=== PATIENT | female | born 1995 | race Caucasian/White ===

== ENCOUNTER 2021-12-19 08:29 | Emergency (ER) | payer OTHER, SELFPAY ==
[2021-12-19] VITALS (7 sets, daily range): BP systolic 106–137; BP diastolic 65–88; PULSE 100–117; RESP 18; TEMP 37; O2SAT 96–100; BMI 41.9
--- NOTE | 2021-12-19 09:09 | W.ED.NAVMDI ---
HPI - Nausea/Vomiting/Diarrhea General: Chief complaint: Nausea/Vomiting/Diarrhea Stated complaint: n/v/d Time Seen by Provider: 12/19/21 09:02 Source: patient Mode of arrival: ambulatory Limitations: no limitations History of Present Illness: 26-year-old female states that since 4 this morning she has been having nausea vomiting along with diarrhea. States she not been able to tolerate any p.o.'s been vomiting everything back up. States she has abdominal cramping denies any pain denies any fever she denies any worsening improving factors. Associated nausea: Yes Associated symtoms: Reports nausea; Denies chest pain, dysuria or headache(s) Review of Systems Const: Denies: fever(s), chills, body aches or change in appetite Eyes: Denies: blurry vision or eye discomfort ENMT: Denies: throat pain or dental pain Card: Denies: chest pain Resp: Denies: dyspnea GI: Reports: nausea, vomiting and diarrhea; Denies: abdominal pain : Denies: dysuria Musc: Denies: neck pain or back pain Skin/Breast: Denies: rash Neuro: Denies: headache(s) Psych: Denies: depression Lenin/Lymph: Denies: easy bruising All/Imm: Denies: urticaria PFSH ED PFSH: Medical History (Updated 12/19/21 @ 10:49 by Wes Burrell MD) No pertinent past medical history Surgical History (Updated 12/19/21 @ 09:10 by Wes Burrell MD) History of cholecystectomy Social History (Updated 12/19/21 @ 09:10 by Wes Burrell MD) Substance/Drug Use: never Physical Exam Const: COMMON NORMALS: no acute distress, patient oriented x3 and healthy appearing HENMT: COMMON NORMALS: normocephalic and atraumatic HEAD & SCALP: normocephalic and atraumatic Eye: COMMON NORMALS: Equal, round and reactive pupils present and EOMs intact bilaterally PUPIL: Yes Equal, round and reactive pupils present Neck/C-Spine: COMMON NORMALS: full ROM and supple Chest: COMMONS NORMALS: normal inspection of the chest and normal palpation of entire chest wall Resp: COMMON NORMALS: normal respiratory effort, No retractions, No use of accessory muscles and clear to auscultation bilaterally AUSCULTATION: clear to auscultation bilaterally Cardio: COMMON NORMALS: regular rate, regular rhythm and No murmurs present (Cardio) RATE: regular rate RHYTHM: regular rhythm GI: COMMON NORMALS: Normal to inspection, nondistended, normoactive bowel sounds present, Soft to palpation, non-tender and no masses PALPATION: Yes Soft to palpation Extremity: COMMON NORMALS: normal to inspection and full ROM Neuro: COMMON NORMALS: patient oriented x3, moves all extremities and no focal motor deficits Psych: COMMON NORMALS: mental status grossly normal, Normal thought process present and cooperative THOUGHT PROCESS: Normal thought process present Skin: COMMON NORMALS: no rashes or lesions noted and no wounds GENERAL SKIN EXAM: no rashes or lesions noted Course Vital Signs: Vital signs: Vital Signs Temperature 98.6 F 12/19/21 08:54 Pulse Rate 117 H 12/19/21 08:54 Respiratory Rate 18 12/19/21 08:54 Blood Pressure 137/88 12/19/21 08:54 Pulse Oximetry 97 12/19/21 08:54 MDM - Nausea/Vomiting/Diarrhea Medical Decision Making Patient presents with vomiting diarrhea that is likely viral in origin or food poisoning. She feels much improved here after IV fluids and Zofran her heart rate is improved she does have a leukocytosis I believe is likely due to vomiting. She has had no abdominal pain no signs of appendicitis her exam at discharge is benign with no abdominal tenderness we will prescribe her Zofran she is to follow-up with PCP and return if worsening she understands agrees to plan. Lab Data : 12/19/21 09:15 12/19/21 09:15 Laboratory Results WBC 16.8 10^3/uL (4.0-10.0) H 12/19/21 09:15 RBC 5.56 10^6/uL (4.1-5.3) H 12/19/21 09:15 Hgb 13.2 g/dL (11.5-15.3) 12/19/21 09:15 Hct 42.9 % (37.0-47.0) 12/19/21 09:15 MCV 77.2 fl (81-99) L 12/19/21 09:15 MCH 23.7 pg (28.0-34.0) L 12/19/21 09:15 MCHC 30.8 g/dL (30.0-36.0) 12/19/21 09:15 RDW 14.0 % (12.1-15.1) 12/19/21 09:15 Plt Count 323 10^3/cmm (130-400) 12/19/21 09:15 MPV 10.2 fL (7.4-10.4) 12/19/21 09:15 Neut % (Auto) 93.9 % 12/19/21 09:15 Lymph % (Auto) 2.2 % 12/19/21 09:15 Dougherty % (Auto) 2.9 % 12/19/21 09:15 Eos % (Auto) 0.4 % 12/19/21 09:15 Baso % (Auto) 0.2 % 12/19/21 09:15 Neut # (Auto) 15.77 10^3/uL (1.8-7.7) H 12/19/21 09:15 Lymph # (Auto) 0.4 10^3/uL (0.8-4.8) L 12/19/21 09:15 Dougherty # (Auto) 0.5 10^3/uL (0.2-0.9) 12/19/21 09:15 Eos # (Auto) 0.1 10^3/uL (0.0-0.8) 12/19/21 09:15 Baso # (Auto) 0.0 10^3/uL (0.0-0.1) 12/19/21 09:15 Nucleated RBC % (auto) 0 % 12/19/21 09:15 Nucleated RBCs # 0.0 /100WBC 12/19/21 09:15 Sodium 138 mmol/L (136-145) 12/19/21 09:15 Potassium 4.4 mmol/L (3.5-5.1) 12/19/21 09:15 Chloride 103 mmol/L (98-107) 12/19/21 09:15 Carbon Dioxide 22 mmol/L (22-29) 12/19/21 09:15 Anion Gap 17.4 (5-19) 12/19/21 09:15 BUN 17 mg/dL (6-20) 12/19/21 09:15 Creatinine 0.6 mg/dL (0.5-0.9) 12/19/21 09:15 GFR Calculation 119.9 mL/min (90-130) 12/19/21 09:15 Glucose 142 mg/dL (65-115) H 12/19/21 09:15 Calculated Osmolality 290 mOsm/kg (285-295) 12/19/21 09:15 Calcium 9.3 mg/dL (8.5-10.5) 12/19/21 09:15 Total Bilirubin 0.3 mg/dL (0.15-1.2) 12/19/21 09:15 AST 19 U/L (0-32) 12/19/21 09:15 ALT 19 U/L (0-33) 12/19/21 09:15 Alkaline Phosphatase 59 IU/L (35-105) 12/19/21 09:15 Total Protein 8.1 g/dL (6.6-8.7) 12/19/21 09:15 Albumin 5.0 g/dL (3.5-5.2) 12/19/21 09:15 Globulin 3.1 g/dL (1.3-4.6) 12/19/21 09:15 Lipase 29 U/L (13-60) 12/19/21 09:15 HCG, Qual Negative (Negative) 12/19/21 09:15 Discharge Plan Discharge Patient Disposition: Home Clinical Impression: Vomiting Qualifiers: Vomiting type: unspecified Nausea presence: with nausea Qualified Code(s): R11.2 - Nausea with vomiting, unspecified Prescriptions: New ondansetron 4 mg tablet,disintegrating 4 mg PO Q6H PRN (Reason: nausea and vomiting) Qty: 14 0RF Discharge Orders: Discharge ED (Routine); Ordered 12/19/21 Ordered By: Wes Burrell Referrals: Tono Alfaro MD [Primary Care Provider] - 1-3 days Discharge Diet: Advance as tolerated Discharge Activity: Resume usual activity Patient Instructions: Acute Nausea and Vomiting (ED) Coding Level of Care Code ED Knurling Machine Operator for Santino Fwd Exam Comprehensive
[2021-12-19] MEDS: sodium chloride 0.9% 1,000 ML 999 ML IV ×2 (09:24→10:54)
[2021-12-19] MEDS: ondansetron 2 mg/ML SDV 2 mL 4 MG IVP (09:24)
[2021-12-19 09:54] LABS: HCG, Serum Qual Negative (Negative)
[2021-12-19 10:01] LABS: Alanine Aminotransferase 19 U/L (0-33); Alkaline Phosphatase 59 IU/L (35-105); Anion Gap 17.4 (5-19); Aspartate Amino Transferase 19 U/L (0-32); Blood Urea Nitrogen 17 mg/dL (6-20); Calcium 9.3 mg/dL (8.5-10.5); Carbon Dioxide 22 mmol/L (22-29); Chloride 103 mmol/L (98-107); Globulin 3.1 g/dL (1.3-4.6); Glomerular Filtration Rate 119.9 mL/min (90-130); Glucose 142 mg/dL (65-115); Lipase 29 U/L (13-60); Osmolality Calculated 290 mOsm/kg (285-295); Potassium 4.4 mmol/L (3.5-5.1); Sodium 138 mmol/L (136-145); Total Bilirubin 0.3 mg/dL (0.15-1.2); Total Protein 8.1 g/dL (6.6-8.7)
[2021-12-19 10:34] LABS: Basophils % 0.2 %; Eosinophils # 0.1 10^3/uL (0.0-0.8); Eosinophils % 0.4 %; Hematocrit 42.9 % (37.0-47.0); Hemoglobin 13.2 g/dL (11.5-15.3); Lymphocytes # 0.4 10^3/uL (0.8-4.8); Lymphocytes % 2.2 %; Mean Corpuscular HGB Conc 30.8 g/dL (30.0-36.0); Mean Corpuscular Hemoglobin 23.7 pg (28.0-34.0); Mean Corpuscular Volume 77.2 fl (81-99); Mean Platelet Volume 10.2 fL (7.4-10.4); Monocytes # 0.5 10^3/uL (0.2-0.9); Monocytes % 2.9 %; Neutrophils # 15.77 10^3/uL (1.8-7.7); Neutrophils % 93.9 %; Nucleated Red Blood Cells % 0 %; Platelet Count 323 10^3/cmm (130-400); Red Blood Count 5.56 10^6/uL (4.1-5.3); White Blood Count 16.8 10^3/uL (4.0-10.0)
[2021-12-19 10:59] LABS: Urine Appearance Turbid (CLEAR); Urine Color Yellow (Yellow)
[2021-12-19 11:00] LABS: Add Urine Microscopic? YES; Amorphous Sediment Urine 4+ /hpf; Bacteria Urine 1+ /hpf; Bilirubin Urine Neg (Negative); Blood Urine 3+ (Negative); Glucose Urine UA Norm (Normal); Ketones Urine Negative (Negative); Leukocyte Esterase Urine 2+ (Negative); Nitrate Urine Negative (Negative); Protein Urine Trace (Negative); RBC Urine 15-25 /hpf (0-2); Squamous Epithelial Cell Urine RARE /hpf (0-5); Urobilinogen Urine Norm (Negative); pH Urine 5 (5-7)
[2021-12-19 11:01] LABS: Add Urine Culture? Yes
== END 2021-12-19 11:40 | disposition home or self-care (01) ==
PROVIDERS: Emergency Provider Emergency Medicine; PCP Family Medicine
DX: R11.2 Nausea with vomiting, unspecified (principal); R19.7 Diarrhea, unspecified
CPT/HCPCS: 80053; 81001; 83690; 84703; 85025; 87086; 96361; 96374; 99284; J2405; J7030

== ENCOUNTER → 2022-12-14 16:00 | Outpatient (BNVA) | payer OTHER, SELFPAY | PROVIDERS: PCP Family Medicine; Visit Provider Obstetrics & Gynecology | DX: Z00.00 Encounter for general adult medical examination without abnormal findings (principal) | CPT/HCPCS: 80053; 84443; 85025; 87624 ==

== ENCOUNTER 2022-12-23 10:36 | Outpatient (CLI) | payer OTHER, SELFPAY ==
[2022-12-23 11:22] LABS: Reticulocyte % 1.7 % (0.5-2.0)
[2022-12-23 11:35] LABS: Partial Thromboplastin Time 32.3 SECONDS (23.9-36.7)
[2022-12-23 11:41] LABS: Ferritin 8 ng/mL (15-150); Iron 22 ug/dL (37-145); Percent Saturation 5.7 % (20-50); Total Iron Binding Capacity 384 mcg/dl; Unsaturated Iron Binding 362 ug/dL (112-347)
[2022-12-23 11:57] LABS: Vitamin B12 684 pg/mL (232-1245)
== END 2022-12-23 10:37 | disposition home or self-care (01) ==
PROVIDERS: PCP Family Medicine; Visit Provider Obstetrics & Gynecology
DX: Z01.419 Encounter for gynecological examination (general) (routine) without abnormal findings (principal)
CPT/HCPCS: 36415; 82607; 82728; 82746; 83540; 83550; 85045; 85610; 85730

== ENCOUNTER → 2024-04-23 12:30 | Outpatient (BNVA) | payer OTHER, SELFPAY | PROVIDERS: PCP Family Medicine; Visit Provider Nurse Practitioner Women's Health | DX: Z00.00 Encounter for general adult medical examination without abnormal findings (principal) | CPT/HCPCS: 82607; 82652; 82728; 82746; 83550; 85025 ==